=== PATIENT | female | born 1975 | race Caucasian/White ===

== ENCOUNTER 2017-10-28 11:07 | Emergency (ER) | payer MEDICAID ==
[~2017-10-28] VITALS: Ht 157.5 cm; Wt 93.0 kg
[2017-10-28 11:08] VITALS: Ht 157.5 cm; Wt 93.0 kg
[2017-10-28 11:40] LABS: CALCIUM 9.9 mg/dL (8.5-10.1); CARBON DIOXIDE 22.7 mmol/L (21-32); CREATININE SERUM 1.3 mg/dL (0.6-1.0); POTASSIUM SERUM 3.4 mmol/L (3.5-5.1)
[2017-10-28 11:44] LABS: BASOPHIL % 0.4 % (0-2); BILIRUBIN TOTAL 0.7 mg/dL (0.20-1.00); PLATELET COUNT 233 x10^3mcL (130-400)
[2017-10-28 11:49] LABS: TOTAL PROTEIN, SERUM 8.3 g/dL (6.4-8.2)
[2017-10-28 14:16] VITALS: BP 154/127
== END 2017-10-28 14:16 | disposition home or self-care (01) ==
LOC: ED 11:07
PROVIDERS: Emergency Medicine
DX: K29.70 Gastritis, unspecified, without bleeding (principal); F41.1 Generalized anxiety disorder
CPT/HCPCS: J2060; J7030; Q0162

== ENCOUNTER 2018-01-23 12:53 | Emergency (ER) | payer MEDICAID ==
[~2018-01-23] VITALS: Ht 157.5 cm; Wt 89.1 kg
[2018-01-23 13:16] VITALS: Ht 157.5 cm; Wt 89.1 kg
[2018-01-23 14:24] LABS: BASOPHIL % 0.4 % (0-2); PLATELET COUNT 225 x10^3mcL (130-400)
[2018-01-23 14:26] LABS: RED CELL DISTRIBUTION WIDTH 15.3 % (11.5-14.5)
[2018-01-23 14:33] LABS: CALCIUM 8.7 mg/dL (8.5-10.1); CREATININE SERUM 1.2 mg/dL (0.6-1.0); POTASSIUM SERUM 3.1 mmol/L (3.5-5.1)
[2018-01-23 14:36] LABS: ALBUMIN 3.8 g/dL (3.4-5.0); BILIRUBIN TOTAL 0.7 mg/dL (0.20-1.00); TOTAL PROTEIN, SERUM 7.6 g/dL (6.4-8.2)
[2018-01-23 15:26] VITALS: BP 146/70
== END 2018-01-23 15:26 | disposition home or self-care (01) ==
LOC: ED 12:53
PROVIDERS: Emergency Medicine
DX: R10.13 Epigastric pain (principal); R10.12 Left upper quadrant pain; R11.10 Vomiting, unspecified; R19.7 Diarrhea, unspecified; I10 Essential (primary) hypertension
CPT/HCPCS: 36415; Q0162

== ENCOUNTER 2018-02-01 01:44 | Emergency (ER) | payer MEDICAID ==
[~2018-02-01] VITALS: Ht 157.5 cm; Wt 92.5 kg
[2018-02-01 01:59] VITALS: Ht 157.5 cm; Wt 92.5 kg
[2018-02-01 04:28] VITALS: BP 128/78
== END 2018-02-01 04:21 | disposition home or self-care (01) ==
LOC: ED 01:44
DX: J06.9 Acute upper respiratory infection, unspecified (principal); I10 Essential (primary) hypertension

== ENCOUNTER 2018-02-10 17:16 | Emergency (ER) | payer MEDICAID ==
[~2018-02-10] VITALS: Ht 160 cm; Wt 81.6 kg
[2018-02-10 17:17] VITALS: Ht 160 cm; Wt 81.6 kg
[2018-02-10 18:46] LABS: microscopic required? YES; urine erythrocyte 2+ (NEGATIVE)
[2018-02-10 18:53] LABS: AMPHETAMINE QUAL UR POSITIVE (See below)
[2018-02-10 19:10] LABS: BASOPHIL % 0 % (0-2); PLATELET COUNT 199 x10^3mcL (130-400); RED CELL DISTRIBUTION WIDTH 14.6 % (11.5-14.5)
[2018-02-10 19:21] LABS: CALCIUM 8.9 mg/dL (8.5-10.1); CARBON DIOXIDE 25.1 mmol/L (21-32); CHLORIDE SERUM 101 mmol/L (98-107); CREATININE SERUM 0.9 mg/dL (0.6-1.0); GFR1 > 60 mL/min; GLUCOSE SERUM 108 mg/dL (74-106); POTASSIUM SERUM 3.1 mmol/L (3.5-5.1); SODIUM SERUM 134 mmol/L (136-145)
[2018-02-10 19:25] LABS: ALBUMIN 3.9 g/dL (3.4-5.0); ALKALINE PHOSPHATASE 109 U/L (46-116); ALT/SGPT 24 U/L (14-59); AST/SGOT 23 U/L (15-37); BILIRUBIN TOTAL 0.5 mg/dL (0.20-1.00); LIPASE 64 IU/L (73-393); TOTAL PROTEIN, SERUM 7.9 g/dL (6.4-8.2)
[2018-02-10 21:22] VITALS: BP 133/66
== END 2018-02-10 21:22 | disposition home or self-care (01) ==
LOC: ED 17:16
PROVIDERS: Emergency Medicine
DX: R10.13 Epigastric pain (principal); F15.10 Other stimulant abuse, uncomplicated; R06.00 Dyspnea, unspecified; R07.89 Other chest pain; I16.0 Hypertensive urgency
CPT/HCPCS: G0480; J1885; J2060; J2270; J2405; J3490; J7030; Q0092

== ENCOUNTER 2018-04-02 06:34 | Emergency (ER) | payer MEDICAID ==
[~2018-04-02] VITALS: Ht 157.5 cm; Wt 87.3 kg
[2018-04-02 06:36] VITALS: Ht 157.5 cm; Wt 87.3 kg
[2018-04-02 11:00] VITALS: BP 145/99
== END 2018-04-02 11:00 | disposition other institution (70) ==
LOC: ED 06:34
DX: S02.2XXA Fracture of nasal bones, initial encounter for closed fracture (principal); S01.511A Laceration without foreign body of lip, initial encounter; S20.212A Contusion of left front wall of thorax, initial encounter; I10 Essential (primary) hypertension; Y04.8XXA Assault by other bodily force, initial encounter; Y93.89 Activity, other specified; Y92.89 Other specified places as the place of occurrence of the external cause; Y99.8 Other external cause status
CPT/HCPCS: J2001; Q0162

== ENCOUNTER 2018-04-12 06:00 | Emergency (ER) | payer MEDICAID ==
[~2018-04-12] VITALS: Ht 157.5 cm; Wt 84.8 kg
[2018-04-12 06:07] VITALS: Ht 157.5 cm; Wt 84.8 kg
[2018-04-12 06:49] VITALS: BP 152/109
== END 2018-04-12 06:49 | disposition home or self-care (01) ==
LOC: ED 06:00
DX: S01.511D Laceration without foreign body of lip, subsequent encounter (principal); X58.XXXD Exposure to other specified factors, subsequent encounter; I10 Essential (primary) hypertension; F31.9 Bipolar disorder, unspecified; F17.210 Nicotine dependence, cigarettes, uncomplicated
CPT/HCPCS: 99406

== ENCOUNTER 2019-07-23 17:56 | Emergency (ER) | payer MEDICAID ==
[~2019-07-23] VITALS: Ht 160 cm; Wt 102.1 kg
[2019-07-23 18:11] VITALS: Ht 160 cm; Wt 102.1 kg
[2019-07-23 20:00] LABS: BASOPHIL % 0.4 % (0-2); PLATELET COUNT 221 x10^3mcL (130-400); RED CELL DISTRIBUTION WIDTH 14.5 % (11.5-14.5)
[2019-07-23 20:09] LABS: CALCIUM 8.7 mg/dL (8.5-10.1); CARBON DIOXIDE 29.1 mmol/L (21-32); CREATININE SERUM 1.1 mg/dL (0.6-1.0)
[2019-07-23 20:14] LABS: BILIRUBIN TOTAL 0.5 mg/dL (0.20-1.00); TOTAL PROTEIN, SERUM 8.2 g/dL (6.4-8.2)
[2019-07-24 01:14] VITALS: BP 186/105
== END 2019-07-24 01:14 | disposition home or self-care (01) ==
LOC: ED 17:56
DX: R10.9 Unspecified abdominal pain (principal); M54.5 Low back pain; I10 Essential (primary) hypertension; F31.9 Bipolar disorder, unspecified
CPT/HCPCS: J0360; J1885; J2060; J2405; J7030